=== PATIENT | female | born 1975 | race Caucasian/White ===

== ENCOUNTER 2023-12-01 10:37 | Emergency (ER) | payer BC, MEDICAID, SELFPAY ==
[2023-12-01 10:53] VITALS: BP 110/65; PULSE 58; RESP 16; TEMP 36.2; O2SAT 97
--- NOTE | 2023-12-01 11:40 | ED.URI ---
HPI - URI/Sore Throat General Chief Complaint: Upper Respiratory Infection Stated Complaint: right ear issue, not feeling well Source: patient Mode of arrival: ambulatory Limitations: no limitations History of Present Illness HPI Narrative: 48-year-old female presented for complaint of right ear pain and decreased hearing for 3 days. She states the day before the ear pain, she started to feel sick with fever, sinus drainage, cough. Pt tested negative for covid at home today. Not taking anything for symptoms. denies shortness of breath, wheezing, nausea, vomiting, diarrhea. smokes 1ppd Related Data Home Medications Medication Instructions Recorded Confirmed aspirin 81 mg chewable tablet 81 mg PO DAILY 12/01/23 12/01/23 bupropion HCl 150 mg 24 hr tablet, 150 mg PO DAILY 12/01/23 12/01/23 extended release clopidogrel 75 mg tablet 75 mg PO DAILY 12/01/23 12/01/23 fluticasone propionate 50 1 spray intranasal DAILY 12/01/23 12/01/23 mcg/actuation nasal spray,suspension furosemide 20 mg tablet 20 mg PO DAILY 12/01/23 12/01/23 isosorbide mononitrate 30 mg 30 mg PO DAILY 12/01/23 12/01/23 tablet,extended release 24 hr ixekizumab 80 mg/mL subcutaneous See Rx Instructions .Route .COMPLEX 12/01/23 12/01/23 auto-injector (CipherMaxtz Autoinjector (3 Pack)) levothyroxine 137 mcg tablet 137 mcg PO DAILY 12/01/23 12/01/23 losartan 50 mg tablet 50 mg PO DAILY 12/01/23 12/01/23 metoprolol succinate 25 mg 25 mg PO DAILY 12/01/23 12/01/23 tablet,extended release 24 hr pantoprazole 20 mg tablet,delayed 20 mg PO DAILY 12/01/23 12/01/23 release rosuvastatin 40 mg tablet 40 mg PO DAILY 12/01/23 12/01/23 Allergies Allergy/AdvReac Type Severity Reaction Status Date / Time No Known Allergies Allergy Verified 12/01/23 10:56 Review of Systems Review of Systems: CONSTITUTIONAL: Denies malaise, reports chills fever. EYES: Denies visual changes, redness, or discharge. ENT: Denies sore throat. Reports ear pain, nasal congestion CARDIOVASCULAR: Denies chest pain, palpitations, or edema. RESPIRATORY: reports cough Denies dyspnea. GASTROINTESTINAL: Denies abdominal pain, nausea, vomiting, diarrhea SKIN: Denies rash or itching. MUSCULOSKELETAL: Denies myalgia. All systems reviewed & are unremarkable except as noted in HPI and below PMFSH Past Medical History Medical History (Updated 12/01/23 @ 12:29 by Geeta Menendez APRN) HTN (hypertension) Social History Social History (Updated 12/01/23 @ 12:29 by Geeta Menendez APRN) Smoking packs per day: 1 Smoking cigarettes per day: 20.0 Smoking status: Current every day smoker Comments At time of signature, agree with nursing past medical, surgical, social and family history. There is no relevant family history pertinent to the presenting complaint Exam Narrative: GENERAL: Mildly ill appearing EYES: PERRLA, conjunctivae clear ENT: Nares clear. Mucous membranes moist. left TM pearly herrera with dull light reflex; Right TM erythematous, bulging and intact, canal not erythematous, No drainage, no tragal tenderness. Oropharynx not erythematous without lesions. NECK: Supple. No lymphadenopathy CHEST: Clear to auscultation, breath sounds equal. No respiratory distress, speaks in full sentences. HEART: Regular rate and rhythm. No murmur heard. SKIN: Warm, dry, no rash. NEURO: Alert and oriented x3. Course Course Emergency Course: Patient is aware of diagnosis, understands and agrees to treatment plan. Anticipatory guidance given. Patient agrees to follow-up as directed and is aware of reasons to seek care at the emergency department. Portions of this record may have been created with voice recognition software Level of Care: Express Care Visit Vital Signs Vital signs: Vital Signs Temperature 97.1 F L 12/01/23 10:53 Pulse Rate 58 L 12/01/23 10:53 Respiratory Rate 16 12/01/23 10:53 Blood Pressure 110/65 12/01/23 10:53 Pulse Oximetry 9
== END 2023-12-01 11:53 | disposition home or self-care (01) ==
PROVIDERS: Emergency Provider Nurse Practitioner Family; PCP Registered Nurse
DX: H66.91 Otitis media, unspecified, right ear (principal); I10 Essential (primary) hypertension; F17.210 Nicotine dependence, cigarettes, uncomplicated
CPT/HCPCS: 99213; G0463

== ENCOUNTER 2024-09-21 07:26 | Outpatient (CLI) | payer BC, OTHER, SELFPAY ==
[2024-09-21 08:28] LABS: Alanine Aminotransferase 16 U/L (6-35); Alkaline Phosphatase 56 U/L (38-126); Anion Gap 7 mmol/L (4-12); Aspartate Amino Transferase 23 U/L (14-36); Bilirubin,Total 0.4 mg/dL (0.2-1.3); Blood Urea Nitrogen 3 mg/dL (7-17); Calcium 8.8 mg/dL (8.4-10.2); Carbon Dioxide 27 mmol/L (22-30); Chloride 104 mmol/L (98-107); Estimated Glomerular Filt Rate > 60; Glucose 100 mg/dL (65-110); Potassium 3.8 mmol/L (3.4-5.0); Sodium 138 mmol/L (137-145)
== END 2024-09-21 07:27 | disposition home or self-care (01) ==
PROVIDERS: PCP Registered Nurse; Visit Provider Obstetrics & Gynecology
DX: N85.2 Hypertrophy of uterus (principal); I10 Essential (primary) hypertension; Z79.899 Other long term (current) drug therapy; Z80.41 Family history of malignant neoplasm of ovary; Z01.818 Encounter for other preprocedural examination
CPT/HCPCS: 36415; 80053; 86850; 86900; 86901

== ENCOUNTER 2024-09-26 00:22 | Day surgery (SDC) | payer BC, OTHER, SELFPAY ==
[2024-07-09 13:37] VITALS: BMI 34.1
--- NOTE | 2024-07-09 14:13 | PC.NURSE ---
Report to the Outpatient Waiting Room, entrance under the green pavilion located off [facility], at time on date . Planned Procedure Time: . Time changes happen often and if your time is changed the preop area will call you the afternoon before. - You and your visitor will be asked to self-screen and do not enter if you have any COVID symptoms. - A mask is optional within the hospital at this time. Patients may have clear liquids (water, carbonated beverages, clear teas, apple juice) until 3 hours prior to surgery with a maximum of 20 ounces. - No food from midnight until time of surgery - Infants may have breast milk until 4 hours before surgery, infant formula 6 hours prior to surgery. - Children will be allowed to drink immediately following surgery. If applicable, please bring a bottle or sippy cup to assist with drinking. Juice, water, soda, and popsicles are readily available. For infants on formula, please bring formula the day of surgery. Pacifiers are allowed. Take the following medications with a SIP of water the morning of surgery: ISOSORBIDE, LEVOTHYROXINE, LOSARTAN, METOPROLOL, PAIN MEDICATION IF NEEDED DO NOT STOP ANY OF YOUR OTHER PRESCRIPTION MEDICATIONS PRIOR TO SURGERY ?EXCEPT THE FOLLOWING Medications to discontinue per physician ASPIRIN AND CLOPEDIGREL INSTRUCTED BY MDS Date to take last dose Please no make-up, nail vincentian, hairspray, perfume, deodorant, or body powder the day of surgery. No jewelry (including any body piercings) or valuables the day of surgery, leave them at home. Please take a shower or bath the night before, or the morning of, surgery with an antibacterial soap. Wear comfortable, loose fitting clothing. Children are encouraged to wear pajamas. - Jewelry must be removed prior to entering the operating room. Rings and piercings that are not removed may be cut off. - The hospital will not accept responsibility for valuables. - Please leave all valuables, including medications, at home the day of surgery. If you are going home after surgery, a licensed driver license examiner must drive you home. - NO public transportation without another adult if you receive anesthesia. - We recommend that an adult stay with you for 24 hours following discharge. - We also recommend that you do not drive, make important decision, drink alcoholic beverages, or take any drugs that were not prescribed by your health care provider for at least 24 hours after your discharge time. For Pediatric surgeries, we recommend two adults accompany the child home. Follow any additional instructions given to you from your surgeon. If you or anyone in your household have experienced Covid symptoms in the past week, please notify your surgeon or the nurse liaison at the phone number below for possible testing. Telephone instructions given to _PATIENT_and asked if any additional questions and then verbalized understanding. Patient advised to call surgeon office or pre surgery nurse liaison [phone] if any additional questions.
--- NOTE | 2024-09-18 15:51 | PC.NURSE ---
Report to the Outpatient Waiting Room, entrance under the green pavilion located off [facility], at time _0600_ on date _[id number]_. Planned Procedure Time: _0730_.? Time changes happen often and if your time is changed the preop area will call you the afternoon before. - You and your visitor will be asked to self-screen and do not enter if you have any COVID symptoms. Please call surgeon if you need to reschedule. - A mask is optional within the hospital at this time. Patients may have clear liquids (water, carbonated beverages, clear teas, apple juice) until 3 hours prior to surgery with a maximum of 20 ounces. - No food from midnight until time of surgery and no smoking Take only the following medications with a SIP of water on the morning of surgery: __Metoprolol, Levothyroxine, Isosorbide, and if needed Flonase and or pain pill. ____ DO NOT STOP ANY OF YOUR OTHER PRESCRIPTION MEDICATIONS PRIOR TO SURGERY EXCEPT THE FOLLOWING Medications to discontinue per physician ___Patient stopped Clopidogrel, and Aspirin [id number] Please no make-up, nail wolof, hairspray, perfume, deodorant, or body powder the day of surgery.? No jewelry (including any body piercings) or valuables the day of surgery, leave them at home.? Please take a shower or bath the night before, or the morning of, surgery with an antibacterial soap.? Wear comfortable, loose fitting clothing.? - Jewelry must be removed prior to entering the operating room.? Rings and piercings that are not removed may be cut off. - The hospital will not accept responsibility for valuables.? - Please leave all valuables, including medications, at home the day of surgery. If you are going home after surgery, a licensed motorcoach driver must drive you home.? - NO public transportation without another adult if you receive anesthesia. - We recommend that an adult stay with you for 24 hours following discharge. - We also recommend that you do not drive, make important decision, drink alcoholic beverages, or take any drugs that were not prescribed by your health care provider for at least 24 hours after your discharge time. Follow any additional instructions given to you from your surgeon. Telephone instructions given to Christa__and asked if any additional questions and then verbalized understanding. Patient advised to call surgeon office or pre surgery nurse liaison [phone] if any additional questions.
[2024-09-26] VITALS (10 sets, daily range): BP systolic 115–150; BP diastolic 56–77; PULSE 59–81; RESP 13–24; TEMP 36.2–36.8; O2SAT 92–100
--- NOTE | ~2024-09-26 | XR_ITS ---
EXAMINATION: XR stent kub - surgery DATE: 09/26/2024 08:46 INDICATION: Bilateral ureteral stent placement for surgery TECHNIQUE: A total of 82 fluoroscopic images of the abdomen and pelvis were obtained during procedure performed by Dr. Ford. Radiologist was not present for the imaging or procedure. The amount of fluoroscopy time used during this procedure was 0.5 minutes. COMPARISON: None. FINDINGS: Nasogastric tube tip projects over expected position over the left upper quadrant. Catheter s advanced into both the left and right ureters with retrograde injection of contrast opacifying the bilateral renal pelvises. IMPRESSION: 1. Bilateral internal ureteral stent placement with tips near the ureteropelvic junction on the left and in the renal pelvis on the right. Reviewed, dictated and finalized at location A.
[2024-09-26] MEDS: LACTATED RINGERS 1,000 ML 30 ML IV CONT ×2 (06:40→10:45)
[2024-09-26] MEDS: KETOROLAC 15 MG/ML VIAL (*BKC) IV PUSH (06:45)
[2024-09-26] MEDS: ACETAMINOPHEN 500 MG TABLET 1000 MG PO ×3 (06:45→19:16)
--- NOTE | 2024-09-26 07:13 | WPDHPUPDATE1 ---
History and Physical Update Update Date/Time: 09/26/24 07:13 History and Physical has been reviewed, including an updated exam of the patient. There are NO changes in the patient's condition. Risks, benefits, and alternatives have been discussed and questions answered. Patient agrees to proceed with procedure.
--- NOTE | 2024-09-26 07:18 | P.PNAN_ITS ---
Anes - Initial Pre Proc Eval Procedure: Operation Date: 09/26/24 07:30 Proposed Procedures p Total Laparoscopic Hysterectomy with Bilateral Salpingo-oophorectomy - Rodri Mejia MD Date/Time: 09/26/24 07:18 Surgeon: Rodri Mejia MD Pre Op Diagnosis: Fam Hx of Malig Neoplasm of Ovary Patient Data Age: 49 Gender: F Height: 1.65 m Weight: 93 kg Allergies Allergy/AdvReac Type Severity Reaction Status Date / Time No Known Allergies Allergy Verified 09/18/24 15:40 Home Medications Medication Instructions Recorded Confirmed Type aspirin 81 mg chewable tablet 81 mg PO DAILY 12/01/23 09/18/24 History clopidogrel 75 mg tablet 75 mg PO DAILY 12/01/23 09/18/24 History fluticasone propionate 50 1 spray intranasal DAILY 12/01/23 09/18/24 History mcg/actuation nasal spray,suspension furosemide 20 mg tablet 20 mg PO DAILY 12/01/23 09/18/24 History isosorbide mononitrate 30 mg 30 mg PO DAILY 12/01/23 09/18/24 History tablet,extended release 24 hr levothyroxine 137 mcg tablet 137 mcg PO DAILY 12/01/23 09/18/24 History losartan 50 mg tablet 50 mg PO DAILY 12/01/23 09/18/24 History metoprolol succinate 25 mg 25 mg PO DAILY 12/01/23 09/18/24 History tablet,extended release 24 hr pantoprazole 20 mg tablet,delayed 20 mg PO DAILY 12/01/23 09/18/24 History release rosuvastatin 40 mg tablet 40 mg PO DAILY 12/01/23 09/18/24 History apremilast 30 mg tablet (Otezla) 30 mg PO BID 07/09/24 09/18/24 History ketorolac 10 mg tablet 10 mg PO Q6H PRN Pain 07/09/24 09/18/24 History methocarbamol 500 mg tablet 500 mg PO TID PRN muscle spasms 07/09/24 09/18/24 History oxycodone 5 mg tablet 5 mg PO Q8H PRN Pain 07/09/24 09/18/24 History potassium chloride 10 mEq 10 meq PO DAILY 07/09/24 09/18/24 History tablet,extended release(part/cryst) Patient hx anesthesia problems: none Family hx anesthesia problems: none Results Review: All pre-operative results and documents have been reviewed as part of the pre-operative evaluation. [facility] Past Medical History Medical History HTN (hypertension) Social History Social History Smoking packs per day: 1 Smoking cigarettes per day: 20.0 Years smoked: 35 Smoking pack-years: 35.00 Smoking status: Former smoker Alcohol intake: former Alcohol use details: LAST DRINK 2 MONTHS AGO- RARE USE Substance use: never Living arrangements: with family Anes - Eval Final PreProcedure Day of Procedure 09/26/24 07:18 Patient weight: obese Heart: regular rate and rhythm Lungs: clear to auscultation Airway: Mallampati scale class II Neurological: alert and oriented Last oral intake: >/= 8 hours ASA classification: III Emergent: no Anesthetic plan: proceed Anesthesia type and monitoring: general ETT and standard monitoring Results Review: All pre-operative results and documents have been reviewed as part of the pre-op erative evaluation. HTN, s/p PTCA 2021 x 1, pt has been on plavix since, held 7-8 days at this point. Cleared by cardiology w office visit last week. Pt continues to smoke 1ppd for many years, smoked at 330 am. Informed Consent: The patient's anesthetic plan and its attendant risks and benefits were discussed with the patient/family/POA. Questions were solicited and answers provided to the satisfaction of the patient/family/POA.
--- NOTE | 2024-09-26 07:33 | PM.IMHP ---
H&P: HPI History of Present Illness Date/Time: 09/26/24 07:33 Chief Complaint: Need for ureteral identification [facility] Past Medical History Medical History (Updated 09/26/24 @ 07:37 by Dulce Ford MD) HTN (hypertension) Obesity Social History Social History Smoking packs per day: 1 Smoking cigarettes per day: 20.0 Years smoked: 35 Smoking pack-years: 35.00 Smoking status: Former smoker Alcohol intake: former Alcohol use details: LAST DRINK 2 MONTHS AGO- RARE USE Substance use: never Living arrangements: with family Meds Home Medications and Allergies Home Medications Medication Instructions Recorded Confirmed Type aspirin 81 mg chewable tablet 81 mg PO DAILY 12/01/23 09/18/24 History clopidogrel 75 mg tablet 75 mg PO DAILY 12/01/23 09/18/24 History fluticasone propionate 50 1 spray intranasal DAILY 12/01/23 09/18/24 History mcg/actuation nasal spray,suspension furosemide 20 mg tablet 20 mg PO DAILY 12/01/23 09/18/24 History isosorbide mononitrate 30 mg 30 mg PO DAILY 12/01/23 09/18/24 History tablet,extended release 24 hr levothyroxine 137 mcg tablet 137 mcg PO DAILY 12/01/23 09/18/24 History losartan 50 mg tablet 50 mg PO DAILY 12/01/23 09/18/24 History metoprolol succinate 25 mg 25 mg PO DAILY 12/01/23 09/18/24 History tablet,extended release 24 hr pantoprazole 20 mg tablet,delayed 20 mg PO DAILY 12/01/23 09/18/24 History release rosuvastatin 40 mg tablet 40 mg PO DAILY 12/01/23 09/18/24 History apremilast 30 mg tablet (Otezla) 30 mg PO BID 07/09/24 09/18/24 History ketorolac 10 mg tablet 10 mg PO Q6H PRN Pain 07/09/24 09/18/24 History methocarbamol 500 mg tablet 500 mg PO TID PRN muscle spasms 07/09/24 09/18/24 History oxycodone 5 mg tablet 5 mg PO Q8H PRN Pain 07/09/24 09/18/24 History potassium chloride 10 mEq 10 meq PO DAILY 07/09/24 09/18/24 History tablet,extended release(part/cryst) Allergies Allergy/AdvReac Type Severity Reaction Status Date / Time No Known Allergies Allergy Verified 09/18/24 15:40 Exam Narrative: no acute distress, soft/nontender abdomen Assessment and Plan Assessment and plan (1) Obesity: Code(s): E66.9 - Obesity, unspecified Status: Acute Plan risks, benefits and alternatives reviewed. Plan internal/external stent insertion for ureteral identification during hysterctomy
--- NOTE | 2024-09-26 07:38 | WPDHPUPDATE1 ---
History and Physical Update Update Date/Time: 09/26/24 07:38 History and Physical has been reviewed, including an updated exam of the patient. There are NO changes in the patient's condition. Risks, benefits, and alternatives have been discussed and questions answered. Patient agrees to proceed with procedure.
[2024-09-26] MEDS: ceFAZolin SODIUM 1 GM VIAL (07:48)
[2024-09-26] MEDS: ceFAZolin 2 GM/D5W 50 ML 2 GM/50 ML BAG IVPB (08:05)
--- NOTE | 2024-09-26 08:31 | W.PM.PROC2 ---
Procedure Note - Detailed Date of Procedure 09/26/24 Pre-op Diagnosis Fam Hx of Malig Neoplasm of Ovary Post-op Diagnosis Same Procedure Performed Cystoscopy, bilateral internal/external ureteral stent insertion, retrograde pyelogram Surgeon Dulce Ford MD Anesthesia General Indications Desire for ureteral identification Description of Procedure Informed consents obtained. Patient taken aspirin. She is given preoperative IV antibiotics. She was induced anesthesia. She was placed in the dorsal lithotomy position. She was prepped draped normal sterile fashion. A 20 F cystoscope was inserted through the urethra into the bladder. Inspection of bladder revealed no mucosal abnormalities. Patient had bilateral orthotopic ureteral orifices. We cannulated the left ureteral orifice with a wire followed by the lighted stent sheath. A retrograde pyelogram was performed that confirmed appropriate location. There was no injury, mild hydronephrosis noted on retrograde. We then inserted the fiber is seen. The procedure was performed on the contralateral side. The sheath and lighted stent fiber was placed in the identical fashion again with mild hydronephrosis noted on the right. A 16 F Oshea catheter was inserted and the stents were secured to the catheter. The case was then turned over to coremaker apprentice. Stents should be removed completion the operation Complications No immediate complications Condition Stable Disposition PACU
--- NOTE | 2024-09-26 09:06 | SUR.OPER ---
Dr. Ford placed lighted stents prior to surgery.
--- NOTE | 2024-09-26 10:35 | W.PM.PROC2 ---
Procedure Note - Detailed Date of Procedure 09/26/24 Pre-op Diagnosis Fam Hx of Malig Neoplasm of Ovary Post-op Diagnosis Same Procedure Performed Laparoscopic supracervical hysterectomy with mini laparotomy and bilateral salpingo-oophorectomy. Surgeon Rodri Mejia MD Anesthesia General Indications Family history of malignant neoplasm of the ovary. Findings Enlarged uterus, normal-appearing fallopian tubes, cystic right ovary. Description of Procedure This patient was taken to the operating room. She was prepped and draped in the dorsal lithotomy position after induction of general anesthesia. The uterine manipulator and Patrick cup were placed. This was done with a speculum and tenaculum. The speculum was placed. The cervix was grasped with a tenaculum. The stay sutures were placed at 3 and 9:00 a.m.. The stay sutures of 0 Vicryl were brought through the appropriately sized Patrick cup. The tip of the KOKI manipulator was placed in the intrauterine cavity. The cup was slid into place around the cervix and into the fornices. It was locked into place. The sutures were then wrapped around the handle and tied under tension. A 5 mm skin incision was made in the left upper quadrant the abdomen. A 5 mm trocar was inserted into the intrauterine cavity under direct visualization of the scope. Pneumoperitoneum was achieved. A left lower quadrant 11 mm incision was made with scalpel. An 11 mm trocar was inserted into the anterior abdominal cavity under direct visualization the scope. A 5 mm infraumbilical incision was made with a scalpel and a 5 mm trocar was inserted the intra-abdominal cavity under direct visualization of the scope. Bilateral ureteral lysis was performed. This was done from the pelvic brim down to the uterine artery. This was done with careful dissection using sharp and blunt dissection. The infundibulopelvic ligaments were isolated after identification of the ureters bilaterally. These infundibulopelvic ligaments were cauterized and transected with LigaSure cautery. The para ovarian tissue was cauterized and transected with LigaSure cautery bilaterally. Moving around the ovary into the broad ligament the tissue was cauterized transected with LigaSure cautery. The round ligaments were cauterized transected with LigaSure cautery this was all done in a bilateral fashion. The ovaries were removed from the uterine cornua and placed in endobag and taken out through the left lower quadrant trocar site In a stepwise fashion along the lateral aspects of the uterus the round ligament and broad ligaments were cauterized transected down to the level of the uterine arteries. A bladder flap was created in the bladder was moved distally to the end of the cervix and over the Patrick cup. The bilateral uterine arteries were cauterized and transected. Cervix was transected. Using cutting cautery the cervix was transected. a mini-laparotomy was performed the suprapubic area. 7 cm incision was made in the skin. Skin of the fascia the knife. The fascia was transected with a knife. Extended laterally with Chavez scissors. The fascia was tented upward and the rectus muscle dissected off bluntly. The rectus muscle were . The preperitoneal fat was dissected bluntly the peritoneal cavity was entered bluntly. Peritoneal incision separation the rectus muscle was extended superior inferiorly with good visualization of bladder. The uterus was removed. Cervix was examined. the pelvis found be hemostatic. The fascia was closed with an 0 Vicryl. subcutaneous tissue was irrigated pinpoint bleeders were cauterized. Skin was closed with subcuticular rob and covered with Dermabond. The patient was taken to recovery room. She was stable condition. Sponge lap and needle counts were correct x2. Estimated Blood Loss 200 Drains Yes Packing No Pathology Yes Complications No immediate complications Condition Stable Disposition Floor
[2024-09-26] MEDS: fentaNYL CITRATE INJ (*CRX) 100 MCG/2 ML VIAL 25 MCG IV PUSH ×4 (11:05→11:15)
--- NOTE | 2024-09-26 12:34 | ADMGEN ---
This patient, Lina Nunez, was admitted to OB 2nd Floor Room 288-00. Patient/family oriented to hospital policies and general routines including ID bracelet, bed and alarms, visiting hours, pain management, procedures, bathroom and other care routines, personal items, smoking policy, room service/diet, and visiting hours. Information on how to activate the Rapid Response Team has been discussed. Patient/Family are encouraged to report perceived risks to care and to ask questions if they do not understand what they are told or what they should do.
[2024-09-26] MEDS: KETOROLAC 30 MG/ML VIAL (*BKC) IV PUSH ×2 (13:29→19:15)
[2024-09-26] MEDS: SIMETHICONE 80 MG TAB.CHEW PO ×2 (13:33→17:38)
[2024-09-26] MEDS: DEXTROSE 5%/0.45% SOD CHL 1,000 ML 125 ML IV CONT (13:34)
[2024-09-26] MEDS: DOCUSATE SODIUM 100 MG CAPSULE PO (17:38)
[2024-09-27] MEDS: KETOROLAC 30 MG/ML VIAL (*BKC) IV PUSH (01:46)
[2024-09-27] MEDS: ACETAMINOPHEN 500 MG TABLET 1000 MG PO ×2 (01:46→08:17)
[2024-09-27 02:04] VITALS: BP 111/62; PULSE 71; RESP 18; TEMP 36.4; O2SAT 97
[2024-09-27 04:53] VITALS: BP 125/58; PULSE 68; RESP 18; TEMP 36.2; O2SAT 98
[2024-09-27] MEDS: LEVOTHYROXINE SODIUM 112 MCG TABLET PO (06:53)
[2024-09-27 07:20] VITALS: BP 112/56; PULSE 66; RESP 16; TEMP 36.3; O2SAT 99
[2024-09-27] MEDS: SIMETHICONE 80 MG TAB.CHEW PO (08:16)
[2024-09-27] MEDS: IBUPROFEN 600 MG TABLET PO (08:17)
--- NOTE | 2024-09-27 08:38 | P.PNOB_ITS ---
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 Postoperative Procedures: Procedures Operation Date: 09/26/24 07:30 Actual Procedure Side Surgeon p Laparoscopic supracervical hysterectomy with mini laparotomy and bilateral salpingo-oophorectomy, cystoscopy, bilateral ureteral stent insertion Bilateral Rodri Mejia MD Postoperative day: 1 Postoperative status: doing well Postoperative plan: see orders Time Spent With Patient Time: Total time spent is greater than 50% in coordination of care (as documented) at patient's floor/unit and/or counseling patient: Time with patient: less than 15 minutes CHILD WELFARE CASEWORKER- PN:Subj Post-Op Subjective Date/time seen: 09/27/24 08:38 Subjective: patient reports feeling better, patient has no complaints and pain is well controlled Exam Const: General: healthy appearing, comfortable and no acute distress Resp: Auscultation: clear to auscultation bilaterally, no rales, no rhonchi and no wheezes Cardio: Rate: regular rate Heart sounds: no click, no murmurs and no rubs GI: Inspection: non-distended Auscultation: normal bowel sounds Extrem: General: normal to inspection, no pedal edema and no calf tenderness CHILD WELFARE CASEWORKER - PN: Obj Data Vital Signs Vital Signs: Vital Signs - 24 hr 09/26/24 10:45 09/26/24 11:00 09/26/24 11:15 Temperature 97.5 F L Pulse Rate 71 66 62 Respiratory Rate 24 H 13 14 Blood Pressure 118/62 120/64 123/68 Pulse Oximetry 93 100 92 Oxygen Delivery Simple Face Mask Simple Face Mask Nasal Cannula Oxygen Flow Rate 6 6 2 09/26/24 11:30 09/26/24 11:45 09/26/24 11:56 Temperature Pulse Rate 71 60 66 Respiratory Rate 15 16 15 Blood Pressure 119/63 115/65 121/69 Pulse Oximetry 100 98 97 Oxygen Delivery Nasal Cannula Nasal Cannula Nasal Cannula Oxygen Flow Rate 2 2 2 09/26/24 13:06 09/26/24 12:40 09/26/24 16:19 Temperature 97.1 F L 98.3 F Pulse Rate 59 L 81 Respiratory Rate 16 16 Blood Pressure 131/66 117/56 L Pulse Oximetry 100 96 Oxygen Delivery Room Air Oxygen Flow Rate 09/26/24 16:19 09/26/24 20:49 09/27/24 02:04 Temperature 97.9 F 97.6 F Pulse Rate 79 71 Respiratory Rate 18 18 Blood Pressure 115/67 111/62 Pulse Oximetry 97 97 Oxygen Delivery Room Air Oxygen Flow Rate 09/27/24 04:53 09/27/24 07:20 Temperature 97.2 F L 97.4 F L Pulse Rate 68 66 Respiratory Rate 18 16 Blood Pressure 125/58 L 112/56 L Pulse Oximetry 98 99 Oxygen Delivery Oxygen Flow Rate Intake/Output Intake/Output: Intake & Output 09/24/24 09/25/24 09/26/24 09/27/24 23:59 23:59 23:59 23:59 Intake Total 2210 800 Output Total 1350 950 Balance 860 -150 Meds/Results Medications: Active Medications Generic Name Dose Route Start Last Admin Trade Name Freq PRN Reason Stop Dose Admin Acetaminophen 1,000 mg 09/26/24 12:03 09/27/24 08:17 Acetaminophen 500 Mg Tablet PO 1,000 mg Q6HR [facility] Administration Aspirin 81 mg 09/27/24 09:00 Aspirin 81 Mg Chewable Tablet PO DAILY [facility] Clopidogrel Bisulfate 75 mg 09/27/24 09:00 Clopidogrel Bisulfate 75 Mg Tablet PO DAILY [facility] Docusate Sodium 100 mg 09/26/24 17:00 09/26/24 17:38 Docusate Sodium 100 Mg Capsule PO 100 mg BID [facility] Administration Fluticasone Propionate 1 spray 09/27/24 09:00 Fluticasone Propionate 0.05% Na Spr 16 Gm Btl (*Bkc) NASAL DAILY [facility] Furosemide 20 mg 09/27/24 09:00 Furosemide 20 Mg Tablet PO DAILY [facility] Dextrose/Sodium Chloride 1,000 mls @ 125 mls/hr 09/26/24 12:03 09/27/24 06:45 Dextrose 5% Sodium Chloride 0.45% IV CONT Not Given .Q8H [facility] Ibuprofen 600 mg 09/27/24 06:00 09/27/24 08:17 Ibuprofen 600 Mg Tablet PO 600 mg Q6HR [facility] Administration Isosorbide Mononitrate 30 mg 09/27/24 09:00 Isosorbide Mononitrate 30 Mg Tab.Er.24h PO DAILY [facility] Ketorolac Tromethamine 10 mg 09/26/24 12:03 Ketorolac 10 Mg Tablet PO Q6H PRN Pain Levothyroxine Sodium 112 mcg 09/27/24 06:30 09/27/24 06:53 Levothyroxine Sodium 112 Mcg Tablet PO 112 mcg DAILY@0630 [facility] Administration Losartan Potassium 50 mg 09/27/24 09:00 Losartan Potassium 50 Mg Tablet PO DAILY [facility] Methocarbamol 500 mg 09/26/24 12:03 Methocarbamol 500 Mg Tablet PO TID PRN muscle spasms Metoprolol Succinate 25 mg 09/27/24 09:00 Metoprolol Succinate Ext Rel 25 Mg Tabcr PO DAILY [facility] Naloxone HCl 0.1 mg 09/26/24 12:03 Naloxone Hcl 0.4 Mg/Ml Vial IV PUSH Q2M PRN Respiratory rate less than 10 Non-Formulary Medication 30 mg 09/26/24 17:00 Apremilast [Otezla] PO 10/26/24 16:59 BID [facility] Ondansetron HCl 4 mg 09/26/24 12:03 Ondansetron Inj 4 Mg/2 Ml Vial IV PUSH Q6H PRN Nausea And Vomiting Oxycodone HCl 5 mg 09/26/24 12:03 Oxycodone Hcl (*Crx) 5 Mg Tab Ir PO Q8H PRN Pain Oxycodone HCl 5 mg 09/26/24 12:03 Oxycodone Hcl (*Crx) 5 Mg Tab Ir PO Q4H PRN Pain Rated 4-6 Oxycodone HCl 10 mg 09/26/24 12:03 Oxycodone Hcl (*Crx) 5 Mg Tab Ir PO Q6H PRN Pain Rated 7-10 Pantoprazole Sodium 20 mg 09/27/24 09:00 Pantoprazole Sod Sesquihydrate 20 Mg Tab PO DAILY [facility] Potassium Chloride 10 meq 09/27/24 09:00 Potassium Chloride 10 Meq Er Tablet PO DAILY [facility] Rosuvastatin Calcium 40 mg 09/27/24 09:00 Rosuvastatin 20 Mg Tablet PO DAILY [facility] Simethicone 80 mg 09/26/24 12:03 09/27/24 08:16 Simethicone 80 Mg Tab.Chew PO 80 mg TIDWM [facility] Administration Radiology Results: ITS Impressions Ureter Stent X-Ray 09/26/24 09:04 IMPRESSION: 1. Bilateral internal ureteral stent placement with tips near the ureteropelvic junction on the left and in the renal pelvis on the right.
[2024-09-27] MEDS: ROSUVASTATIN 20 MG TABLET 40 MG PO (09:00)
[2024-09-27] MEDS: DOCUSATE SODIUM 100 MG CAPSULE PO (09:00)
[2024-09-27 09:01] VITALS: PULSE 66
[2024-09-27] MEDS: ISOSORBIDE MONONITRATE 30 MG TAB.ER.24H PO (09:01)
[2024-09-27] MEDS: METOPROLOL SUCCINATE EXT REL 25 MG TABCR PO (09:01)
[2024-09-27] MEDS: CLOPIDOGREL BISULFATE 75 MG TABLET PO (09:01)
[2024-09-27] MEDS: PANTOPRAZOLE SOD SESQUIHYDRATE 20 MG TAB PO (09:01)
[2024-09-27] MEDS: LOSARTAN POTASSIUM 50 MG TABLET PO (09:01)
[2024-09-27] MEDS: ASPIRIN 81 MG CHEWABLE TABLET PO (09:01)
== END 2024-09-27 10:15 | disposition home or self-care (01) ==
LOC: ANHSURGERY 06:08 → ANHOB2 12:08
PROVIDERS: PCP Registered Nurse; Visit Provider Obstetrics & Gynecology
PROC: 0UT9FZZ Resection of Uterus, Via Natural or Artificial Opening With Percutaneous Endoscopic Assistance (ICD-10-PCS; CPT 58180; principal; 2024-09-26 07:30)
DX: N92.0 Excessive and frequent menstruation with regular cycle (principal); N94.6 Dysmenorrhea, unspecified; N84.0 Polyp of corpus uteri; N73.6 Female pelvic peritoneal adhesions (postinfective); G89.18 Other acute postprocedural pain; I11.9 Hypertensive heart disease without heart failure; E78.00 Pure hypercholesterolemia, unspecified; K21.9 Gastro-esophageal reflux disease without esophagitis; F41.9 Anxiety disorder, unspecified; F32.A Depression, unspecified; E28.2 Polycystic ovarian syndrome; I25.2 Old myocardial infarction; E66.9 Obesity, unspecified; Z68.34 Body mass index [BMI] 34.0-34.9, adult; Z79.82 Long term (current) use of aspirin; Z79.891 Long term (current) use of opiate analgesic; Z79.02 Long term (current) use of antithrombotics/antiplatelets; Z79.1 Long term (current) use of non-steroidal anti-inflammatories (NSAID); Z87.891 Personal history of nicotine dependence; Z80.41 Family history of malignant neoplasm of ovary; Z53.31 Laparoscopic surgical procedure converted to open procedure
CPT/HCPCS: 52005; 58180; 88307; A9270; J0690; J1100; J1885; J2003; J2250; J2270; J2405; J2704; J3010; J7030; J7120; Q9968